=== PATIENT | male | born 1950 | race Caucasian/White ===

== ENCOUNTER → 2018-12-30 14:06 | Outpatient (CLI) | payer MEDICARE, SELFPAY ==
[2018-12-30 14:34] LABS: Erythrocyte Sedimentation Rate 19 MM/HR (0-15)
== END ==
PROVIDERS: PCP Family Medicine; Visit Provider Family Medicine
DX: R51 Headache (principal)
CPT/HCPCS: 36415; 85651

== ENCOUNTER 2021-03-11 07:54 | Outpatient (CLI) | payer MEDICARE, SELFPAY ==
[2021-03-11] VITALS (7 sets, daily range): BP systolic 127–158; BP diastolic 65–98; PULSE 65–96; RESP 16–18; TEMP 36.8–37.1; O2SAT 96–98; BMI 22.7
--- NOTE | 2021-03-11 08:02 | DI.RAD.S_ITS ---
PROCEDURE: FL MYELOGRAM SPINE LUMBOSACRAL INDICATIONS: Postlaminectomy syndrome, not elsewhere classified COMPARISON: None. TECHNIQUE: The indications, alternatives, benefits, risks and complications of the procedure were explained to the patient. Written informed consent was obtained and placed in the chart. The patient was placed in a prone position on the fluoroscopy table, and a level was chosen for percutaneous access under fluoroscopic guidance. The skin was prepped and draped in a sterile fashion. After local anaesthetic, a spinal needle was then used to enter the intrathecal space, with return of clear cerebrospinal fluid. 10 mL of Isovue M-300 were administered intrathecally under fluoroscopic visualization. The needle was then withdrawn, and a bandage applied to the puncture site. Fluoroscopic spot films were then acquired in various positions. FINDINGS: Standing frontal, lateral, and oblique views demonstrate no significant central canal stenoses. Access level: L2-L3 Medications: 1% lidocaine for local anaesthesia. Complications: None. Patient was transferred to CT for subsequent CT myelogram. IMPRESSION: Successful fluoroscopically guided administration of iodinated contrast into the lumbar spine central canal for CT myelogram. No immediate complications. Dictated by: Rashida Norman MD, PhD on 03/11/2021 at 10:55 Approved by: Rashida Norman MD, PhD on 03/11/2021 at 10:56
--- NOTE | 2021-03-11 08:03 | DI.CT.S_ITS ---
PROCEDURE: CT LUMBAR SPINE W CON INDICATIONS: Postlaminectomy syndrome, not elsewhere classified TECHNIQUE: After the intrathecal administration of 15 mL intrathecal contrast, 3 mm thick sections acquired from T12 to the sacrum. Sagittal and coronal reformats were then constructed. For radiation dose reduction, the following was used: automated exposure control. COMPARISON: [facility], , SPINE LUMB 2 OR 3VW, 04/23/2010, 15:52. [facility], RG, XR L-SPINE 4-6V, 01/11/2020, 12:35. [facility], RG, XR T-SPINE 2-3V, 01/11/2020, 12:35. FINDINGS: Image quality: Excellent. Bones: There is trace L1-L2 retrolisthesis. There is approximately 14? of convex left lumbar spine scoliosis. No spondylolysis or spondylolisthesis. No suspicious bony lesions. No acute fractures. Soft tissues: No retroperitoneal masses. Visualized aorta demonstrates normal caliber. T12-L1: Normal appearance. L1-L2: Slight loss of disc height. Mild, diffuse disc bulge. Mild narrowing of the central canal. Mild bilateral neural foraminal narrowing. No neural compression. L2-L3: Loss of disc height. Endplate osteophytosis. Mild bilateral facet hypertrophy. Mild to moderate narrowing of the central canal. Moderate to severe right and mild left neural foraminal narrowing with slight compression of the exiting right L2 nerve root. L3-L4: Loss of disc height. Vacuum disc phenomenon. Mild, diffuse disc bulge. Mild bilateral facet hypertrophy. Mild ligamentum flavum hypertrophy. Moderate narrowing of the central canal. Moderate to severe right and mild left neural foraminal narrowing with slight compression of the exiting right L3 nerve root L4-L5: Loss of disc height. Vacuum disc phenomenon. Mild, diffuse disc bulge. Central/left central disc protrusion. Mild bilateral facet hypertrophy. Mild narrowing of the central canal. Moderate bilateral neural foraminal narrowing. No neural compression. L5-S1: Disc height is normal. Mild, diffuse disc bulge. Mild right moderate left facet hypertrophy. No central stenosis. No neural foraminal narrowing. No neural compression.. Miscellaneous: Nerve roots appear unremarkable throughout. No nerve root clumping to suggest arachnoiditis. IMPRESSION: 1. Convex left scoliosis. 2. Multilevel degenerative disc disease. 3. Multilevel facet arthropathy. 4. No severe central canal narrowing. 5. Moderate to severe right L2-L3 and L3-L4 neural foraminal narrowing with slight compression of the exiting right L2 and L3 nerve roots. Dictated by: Rashida Norman MD, PhD on 03/11/2021 at 15:02 Approved by: Rashida Norman MD, PhD on 03/11/2021 at 15:09
[2021-03-11 09:26] LABS: Add Manual Diff / Slide Review NO; Basophils Absolute Auto 100 /uL (0-100); Basophils Percent Auto 1.1 % (0-2); Eosinophils Absolute Auto 1200 /uL (0-450); Hematocrit 45.5 % (41-53); Hemoglobin 15.6 g/dL (13.5-17.5); Lymphocytes Absolute Auto 2400 /uL (1100-4500); Lymphocytes Percent Auto 25.9 % (25-40); Mean Corpuscular HGB Conc 34.2 % (30-36); Mean Corpuscular Volume 96.5 fL (80-100); Monocytes Absolute Auto 600 /uL (0-900); Monocytes Percent Auto 6.1 % (3-14); Neutrophils Absolute Auto 5000 /uL (1500-7000); Neutrophils Percent Auto 53.9 % (50-75); Platelet Count 339 X10^3/uL (150-400); Red Blood Cell Count 4.72 X10^6/uL (4.5-5.9); White Blood Cell Count 9.3 X10^3/uL (4.5-11.0)
[2021-03-11 09:33] LABS: Prothrombin Time 11.4 SECONDS (10.1-12.7)
--- NOTE | 2021-03-11 10:25 | SUR.PHASEII ---
Pt arrived, denied pain, VSS and given juice to drink. Bamdaid to back c/d/i.
--- NOTE | 2021-03-11 10:54 | SUR.PHASEII ---
Drinking, no complaints.
--- NOTE | 2021-03-11 12:35 | SUR.PREOP ---
Ride called, pt asymptomatic, brother's number called, voice mail left , pt ready to go.
== END 2021-03-11 12:40 | disposition home or self-care (01) ==
PROVIDERS: PCP Family Medicine; Referring Provider Pain Medicine Pain Medicine; Visit Provider Pain Medicine Pain Medicine
DX: M96.1 Postlaminectomy syndrome, not elsewhere classified (principal); R79.1 Abnormal coagulation profile
CPT/HCPCS: 36415; 72132; 72265; 85025; 85610

== ENCOUNTER → 2022-03-17 09:40 | Outpatient (CLI) | payer MEDICARE, SELFPAY ==
--- NOTE | 2022-03-17 | DI.RAD.S_ITS ---
PROCEDURE: FL UPPER GI W AIR INDICATIONS: Abnormal weight loss COMPARISON: None. FINDINGS: Esophagus: Esophageal mucosa is normal on air-contrast views. On single-contrast views, there is tertiary contractions of esophageal wall muscles. No strictures, extrinsic mass effects, or diverticula. There is a small sliding hiatal hernia with moderate gastroesophageal reflux seen during the study. There is normal transit of a calibrated barium tablet through the esophagus. Stomach: The stomach is normally distensible, with normal rugal fold thickness. No mucosal masses or ulcers. Pylorus and duodenal bulb appear normal in morphology. Duodenal folds are normal in thickness as well. IMPRESSION: 1. Small hiatal hernia with moderate gastroesophageal reflux. 2. Tertiary contraction of esophageal wall muscles which suggestive of mild esophageal wall muscle contractility disorder. 3. No ulceration or intraluminal filling defect. No obstruction. Dictated by: Akira Nicholson M.D. on 03/17/2022 at 12:37 Approved by: Akira Nicholson M.D. on 03/17/2022 at 12:40
== END ==
PROVIDERS: PCP Family Medicine; Referring Provider Family Medicine; Visit Provider Family Medicine
DX: K21.9 Gastro-esophageal reflux disease without esophagitis (principal); K44.9 Diaphragmatic hernia without obstruction or gangrene; R68.81 Early satiety; R63.4 Abnormal weight loss
CPT/HCPCS: 74246

== ENCOUNTER → 2022-07-29 13:15 | Outpatient (CLI) | payer MEDICARE, SELFPAY ==
--- NOTE | 2022-07-29 13:18 | DI.RAD.S_ITS ---
PROCEDURE: XR ACUTE ABDOMEN SERIES INDICATIONS: CONSTIPATION, EARLY SATIETY, ABDOMINAL PAIN, SCAPHOLUNATE AD TECHNIQUE: One view chest and two views of the abdomen were acquired. COMPARISON: None. FINDINGS: Surgical changes and devices: Epidural stimulator in place with right-sided battery pack. Chest: Lungs are clear. Heart size is normal. No pleural effusions. No pneumoperitoneum. Abdomen: Bowel gas pattern is normal. No suspicious calcifications. Visualized solid organ contours appear normal. Bones: Convex left lumbar scoliosis. IMPRESSION: Epidural stimulator in good position. Nonobstructive bowel gas pattern Approved by: Jaxon Gutierrez M.D. on 07/29/2022 at 17:37
== END ==
PROVIDERS: PCP Family Medicine; Referring Provider Internal Medicine Gastroenterology; Visit Provider Internal Medicine Gastroenterology
DX: K59.00 Constipation, unspecified (principal); R10.9 Unspecified abdominal pain; R68.81 Early satiety
CPT/HCPCS: 74022

== ENCOUNTER 2022-09-15 12:12 | Day surgery (SDC) | payer MEDICARE, SELFPAY ==
--- NOTE | 2022-09-15 | PATH_ITS ---
[facility] Accession Number: [id number] No. of containers..05 Tissue . 01 Material submitted: . PART A: duodenum - DUODENUM BIOPSY PART B: stomach - ANTRUM BIOPSY PART C: esophagus - DISTAL ESOPHAGUS BIOPSY PART D: colon - ASCENDING COLON POLYP X 2 PART E: colon - TRANSVERSE COLON POLYP . 01 Diagnosis: A. Duodenum, Biopsy: Duodenal mucosa with no diagnostic abnormality. Negative for active inflammation, features of sprue, dysplasia, or malignancy. . B. Gastric Antrum, Biopsy: Gastric antral mucosa with mild chronic inflammation. Negative for Helicobacter organisms by immunohistochemistry. Negative for intestinal metaplasia. Negative for dysplasia or malignancy. . C. Distal Esophagus, Biopsy: Squamocolumnar junctional mucosa with specialized intestinal metaplasia; please see comment. Negative for dysplasia or malignancy. . D. Ascending Colon Polyps: Tubular adenomas (two polyps removed). . E. Transverse Colon Polyp: Tubular adenoma. [facility] 09/18/2022 1402 Local . 01 Comment: C. The findings in the distal esophageal biopsy would be consistent with Crawford's esophagus in the appropriate endoscopic setting. . 01 Electronically signed: . Bunny Madrid MD, PhD, Pathologist NPI- [id number] . 01 Gross description: . Part A: DUODENUM BIOPSY: Received in formalin are 3 fragment(s) of eckert, soft tissue measuring 0.3 x 0.2 x 0.1 cm to 0.2 x 0.1 x 0.1 cm submitted entirely in 1 cassette(s) Part B: ANTRUM BIOPSY: Received in formalin is 1 fragment(s) of eckert, soft tissue measuring 0.4 x 0.2 x 0.1 cm submitted entirely in 1 cassette(s) Part C: DISTAL ESOPHAGUS BIOPSY: Received in formalin are 2 fragment(s) of eckert, soft tissue measuring 0.3 x 0.2 x 0.1 cm to 0.3 x 0.1 x 0.1 cm submitted entirely in 1 cassette(s) Part D: ASCENDING COLON POLYP X 2: Received in formalin are 3 fragment(s) of eckert, soft tissue measuring 0.5 x 0.4 x 0.4 cm to 0.3 x 0.2 x 0.1 cm submitted entirely in 1 cassette(s) Part E: TRANSVERSE COLON POLYP: Received in formalin is 1 fragment(s) of eckert, soft tissue measuring 0.7 x 0.3 x 0.3 cm submitted entirely in 1 cassette(s) /CPE 09/16/2022 0719 Local . 01 Microscopic: . B. An immunohistochemical stain was performed to evaluate for Helicobacter organisms and is negative. The control stain showed appropriate reactivity. . * This test was developed and its performance characteristics determined by [employer]. It has not been cleared or approved by the U.S. Food and Drug Administration. The FDA has determined that such clearance or approval is not necessary. This test is used for clinical purposes. It should not be regarded as investigational or for research. . 01 Pathologist provided ICD-10: K29.70, K22.70, D12.2, D12.3 . 01 CPT . 877028, 201480, 772342, 004195, 053490, [id number] Specimen Comment: A courtesy copy of this report has been sent to [phone] Performed at: 01 [facility] [address] [place] [address] [address], [place], [place] [id number] MD Asher Dueñas MD Phone: [phone]
[2022-09-15 13:00] VITALS: BP 133/88; PULSE 100; RESP 21; TEMP 36.3; O2SAT 100; BMI 22.7
[2022-09-15] MEDS: LACTATED RINGERS 1,000 ML 42 ML IV (13:10)
--- NOTE | 2022-09-15 13:17 | PM.HP.1 ---
History of Present Illness History of Present Illness Date Patient Seen: 09/15/22 Time Patient Seen: 13:17 Chief complaint: EGD/Colonoscopy Narrative: I reviewed my recent office note. No significant changes. He is still experiencing early satiety abdominal pain and had some weight loss. He reports today for upper and lower evaluation. [facility] Medical History Anxiety Chronic headaches Chronic lumbar pain COPD (chronic obstructive pulmonary disease) Depression Diverticulosis Fatigue Insomnia Obstructive sleep apnea Opioid dependence with current use Osteoarthritis Periodic limb movement disorder (PLMD) Pulmonary nodule Restless legs syndrome (RLS) Snoring Spinal cord stimulator dysfunction Surgical History History of hemilaminectomy History of hemilaminectomy Spinal cord stimulator status Family History Father ETOH abuse Snoring Mother Depression Social History marital status: details: passed 08/2018 number of children: 2 household members: none lives independently: Yes caregiver/support person: No occupational status: previously employed Smoking Status: Former smoker Tobacco: How many years used: 30 alcohol intake: current substance use type: does not use Meds Home Medications and Allergies Home Medications Medication Instructions Recorded Confirmed Type oxycodone-acetaminophen 5 mg-325 1 tab PO BID 12/30/18 09/15/22 History mg tablet aspirin 81 mg tablet 81 mg PO DAILY 03/11/21 09/15/22 History psyllium husk 3.4 gram/5.4 gram 1 tsp PO BID 09/15/22 09/15/22 History oral powder (Metamucil) zolpidem 5 mg tablet 5 mg PO BEDTIME 09/15/22 09/15/22 History Allergies Allergy/AdvReac Type Severity Reaction Status Date / Time No Known Drug Allergies Allergy Verified 09/15/22 12:56 Review of Systems Review of Systems ROS: Yes All systems reviewed with the patient and are negative except as otherwise documented Exam Vital Signs (past 8 hours): - 09/15/22 13:00 Temperature 97.3 F L Pulse Rate 100 H Respiratory Rate 21 Blood Pressure 133/88 Pulse Oximetry 100 Oxygen Delivery Method Room Air Oxygen Delivery Method Room Air Const General: cooperative [facility] Head: normal to inspection Eyes General: appearance normal, both eyes and all related structures Neck Neck: normal visual inspection Chest Chest: normal inspection of the chest Resp Effort & Inspection: normal respiratory effort Cardio Rate: regular rate GI Inspection: normal to inspection Skin General: no rashes or lesions noted Neuro General: patient alert and patient awake Extrem General: normal to inspection and no pedal edema Psych Appearance: grossly normal Assessment & Plan Assessment & Plan narrative: 72-year-old with early satiety weight loss, abdominal pain, on chronic opiates. Endoscopic interrogation from above and below is pursued today to exclude sinister/neoplastic pathology.
--- NOTE | 2022-09-15 13:18 | PM.PREOP ---
Pre-operative Note Interval Note History & Physical reviewed/Exam performed by Physician: Yes Changes to H&P: No ASA Class (for procedural sedation): III
--- NOTE | 2022-09-15 14:39 | PM.OP.EC ---
Operative Date/Time/Diagnoses Date of procedure: 09/15/22 Time of procedure: 14:39 Pre-op diagnosis: Early satiety weight loss abdominal pain. Post-op diagnosis: same Procedure & Clinicians Study performed: EGD with biopsies and colonoscopy with hot snare polypectomies Same procedure as scheduled: Yes Indications: Early satiety, weight loss, abdominal pain. Surgeon: Mike Machuca Procedure Notes SCOAP/Timeout: Done Procedure in detail: After the risks and benefits were explained, written and verbal informed consent was obtained. The patient was brought into the procedure room and placed into the left lateral decubitus position. Please see anesthesia notes for sedation details. The scope was introduced into the mouth through the bite block and advanced under direct visualization to the 2nd portion of the duodenum. The scope was slowly withdrawn carefully examining the mucosa for any defects or lesions. Retroflexed views were accomplished in the stomach. The stomach was decompressed, the scope was then removed from the patient who tolerated the procedure well. The patient was then turned around, a digital rectal examination was performed and the scope introduced into the rectum. It was advanced under direct visualization to the level of the cecum as identified by the appendiceal orifice and ileocecal valve. The scope was slowly withdrawn to carefully examine the mucosa for any defects or lesions. Multiple direct views were made through the dentate line for exclusion of pathology. The colon was decompressed scope removed from the patient who tolerated the procedure well. Pediatric colonoscope Bowel prep adequate Scope withdrawal time: 16 minutes Sedation minutes: 35 Complications: none Impression: 1. Duodenum: This was visually normal from the bulb through to the 2nd portion. Random D2 biopsies were acquired for exclusion of sprue. 2. Stomach: No mass lesions no outlet obstruction. Moderate gastropathy was appreciated and biopsies were acquired from the antrum for exclusion of H pylori or other pathology. Retroflexed views of the LES disclosed a small sliding hiatal hernia. 3. Esophagus: The squamocolumnar junction extended up into the tubular esophagus consistent with what appeared to be C to M for Barretts. No sign of any nodularity. No sign of any active inflammation. The GEJ was at 39 cm from the incisors. The diaphragmatic pinchcock was at 41 cm. Distal esophageal biopsies were acquired to evaluate for specialized intestinal metaplasia. The remainder of the esophagus was unremarkable. 4. Colon: Patient had scattered diverticulosis in the left and right colon. In the ascending colon there were 2 polyps ranging in size from 7-9 mm removed with hot snare. In the transverse colon there was an approximately 10 cm short pedunculated polyp removed with hot snare. Mild melanosis coli was evident. There was arguably some mild prostatic hypertrophy visualized in the rectum and palpable on digital exam. There were a couple of linear erosions overlying this location suggestive of subtle stercoral ulceration. Endoscopic diagnosis 1. C2 M4 Barretts 2. Hiatal hernia 3. Gastropathy 4. Multiple colon polyps 5. Diverticulosis 6. Prostate hypertrophy 7. Mild melanosis coli 8. Subtle stercoral ulcerations Post-procedure Plan for aftercare: 1. Await histopathology. 2. Continue psyllium fiber twice daily. 3. Add an [id number]-fordngi omeprazole 20 mg once daily. 4. If Crawford's is identified, repeat surveillance EGD within the next 12 months. 5. Repeat colonoscopy 3 years. Disposition: PACU
[2022-09-15 14:40] VITALS: BP 127/88; PULSE 91; RESP 16; TEMP 36.2; O2SAT 95
[2022-09-15 14:44] VITALS: BP 145/93; PULSE 89; RESP 12; O2SAT 96
[2022-09-15 14:49] VITALS: BP 158/109; PULSE 100; RESP 22; O2SAT 92
[2022-09-15 14:55] VITALS: BP 147/102; PULSE 84; RESP 12; O2SAT 95
== END 2022-09-15 15:17 | disposition home or self-care (01) ==
PROVIDERS: PCP Family Medicine; Referring Provider Internal Medicine Gastroenterology; Visit Provider Internal Medicine Gastroenterology
PROC: 0DJ08ZZ Inspection of Upper Intestinal Tract, Via Natural or Artificial Opening Endoscopic (ICD-10-PCS; CPT 43235; principal; 2022-09-15 13:30)
PROC: 0DJD8ZZ Inspection of Lower Intestinal Tract, Via Natural or Artificial Opening Endoscopic (ICD-10-PCS; CPT 45378; 2022-09-15 13:30)
DX: R10.9 Unspecified abdominal pain (principal); R68.81 Early satiety; R63.4 Abnormal weight loss; K22.70 Barrett's esophagus without dysplasia; K44.9 Diaphragmatic hernia without obstruction or gangrene; K31.9 Disease of stomach and duodenum, unspecified; K57.30 Diverticulosis of large intestine without perforation or abscess without bleeding; N40.0 Benign prostatic hyperplasia without lower urinary tract symptoms; K63.89 Other specified diseases of intestine; K62.6 Ulcer of anus and rectum; K29.50 Unspecified chronic gastritis without bleeding; D12.2 Benign neoplasm of ascending colon; D12.3 Benign neoplasm of transverse colon
CPT/HCPCS: 45385; 43239; J2704